=== PATIENT | female | born 1980 | race Caucasian/White ===

== ENCOUNTER 2018-05-06 06:33 | Emergency (ER) | payer MEDICARE, MEDICAID | END 2018-05-06 07:39 | disposition home or self-care (01) | LOC: M ED 06:33 | DX: L50.9 Urticaria, unspecified (principal); E11.9 Type 2 diabetes mellitus without complications; Z79.4 Long term (current) use of insulin; E66.9 Obesity, unspecified | CPT/HCPCS: 99282 ==